=== PATIENT | female | born 1955 | race Caucasian/White ===

== ENCOUNTER 2016-10-01 13:56 | Inpatient (IN) | payer MEDICARE, MEDICAID ==
[~2016-10-01] VITALS: Ht 160 cm; Wt 72.6 kg
[~2016-10-01 13:56] MED LIST: AMLO2.5T45 PO; ASPI-1035 PO; ATOR20TA65 PO; ENAL20TA; GLIM4TAB2 PO; GLIP10TA72; LISI-186 PO; METF10002 PO; PANT40TA4 PO; SITA100T6 PO; TRAM50TA
[2016-10-01] MEDS ORDERED: SODIUM CHLORIDE 0.9% 500 ML IV ONE (14:44)
[2016-10-01 15:06] LABS: BASOPHILS % 0.2 % (0.0-2.0); HEMATOCRIT. 38.8 % (36.0-48.0); HEMOGLOBIN. 12.9 g/dL (12.0-16.0); LYMPHOCYTES % 23.1 % (20.0-50.0); MEAN CORPUSCULAR HEMOGLOBIN 28.7 pg (28.0-32.0); MEAN CORPUSCULAR HGB CONC 33.2 g/dL (31.0-37.0); MEAN CORPUSCULAR VOLUME 86.6 fL (81.0-99.0); MONOCYTES % 5.2 % (2.0-8.0); NEUTROPHILS % 70.5 % (40.0-76.0); PLATELET 251 x1000/uL (130-400); RED BLOOD CELL COUNT 4.48 mill/uL (4.2-5.4); RED CELL DISTRIBUTION WIDTH 14.3 % (11.6-14.6); WHITE BLOOD COUNT 6.1 x1000/uL (4.5-11.0)
[2016-10-01 15:11] LABS: PROTHROMBIN TIME 10.6 sec
[2016-10-01 15:13] LABS: CHLORIDE 104 mEq/L (98-107); INDEX HEMOLYSI 1 (1-3); INDEX ICTERIC 1 (1-4); INDEX LIPEMIC 1 (1-3)
[2016-10-01 15:19] LABS: ALANINE AMINOTRANSFERASE 22 IU/L (13-61); ALBUMIN 3.9 g/dL (3.4-5.0); ANION GAP 15; CALCIUM 9.2 mg/dL (8.5-10.1); CARBON DIOXIDE 25 mEq/L (21-32); LIPASE 333 IU/L (73-393); UREA NITROGEN BLOOD 10 mg/dL (7-21)
[2016-10-01 15:24] LABS: CREATINE KINASE 77 IU/L (26-192); CREATINE KINASE MB FRACTION 1.9 ng/mL (0.5-3.6); NT PRO B-TYPE NATRIURETIC PEP 120 pg/mL (5-125); TROPONIN I < 0.02 ng/mL (0.00-0.04); eGFR > 60 mL/min (>60)
[2016-10-01 20:00] VITALS: BP 141/77
[2016-10-01 22:15] VITALS: BP 141/77
[2016-10-02] VITALS: BP 118/82
[2016-10-02] MEDS ORDERED: CLONIDINE 0.1MG TABLET PO PRN (01:30)
[2016-10-02] MEDS ORDERED: ACETAMINOPHEN 325MG TABLET PO PRN (01:30)
[2016-10-02] MEDS ORDERED: DEXTROSE 50% WATER 50ML SYRINGE IV PRN (02:15)
[2016-10-02 04:00] VITALS: BP 105/60
[2016-10-02] MEDS: BLOOD SUGAR DIAGNOSTIC STRIP TEST SCH ×4 (06:20→21:20)
[2016-10-02 06:48] LABS: BASOPHILS % 0.4 % (0.0-2.0); EOSINOPHILS % 1.7 % (0.0-5.0); HEMOGLOBIN. 11.9 g/dL (12.0-16.0); LYMPHOCYTES % 31.6 % (20.0-50.0); MEAN CORPUSCULAR HEMOGLOBIN 28.7 pg (28.0-32.0); MEAN CORPUSCULAR HGB CONC 33.1 g/dL (31.0-37.0); MEAN CORPUSCULAR VOLUME 86.5 fL (81.0-99.0); MEAN PLATELET VOLUME 7.1 fl (7.4-10.4); MONOCYTES % 7.8 % (2.0-8.0); NEUTROPHILS % 58.5 % (40.0-76.0); PLATELET 230 x1000/uL (130-400); RED BLOOD CELL COUNT 4.16 mill/uL (4.2-5.4); WHITE BLOOD COUNT 5.1 x1000/uL (4.5-11.0)
[2016-10-02] MEDS: INSULIN LISPRO 100 UNITS/ML SUBCUT SCH ×4 (07:00→21:17)
[2016-10-02 07:01] LABS: ANION GAP 13; CARBON DIOXIDE 25 mEq/L (21-32); CHLORIDE 106 mEq/L (98-107); HDL CHOLESTEROL 43 mg/dL (40-59); INDEX HEMOLYSI 1 (1-3); INDEX ICTERIC 1 (1-4); INDEX LIPEMIC 1 (1-3); LDL CHOLESTEROL 111 mg/dL (5-100); TRIGLYCERIDE 134 mg/dL (0-150); UREA NITROGEN BLOOD 9 mg/dL (7-21); eGFR > 60 mL/min (>60)
[2016-10-02 08:00] VITALS: BP 130/76
[2016-10-02] MEDS: ENOXAPARIN 40MG/0.4ML SYR SUBCUT SCH (08:47)
[2016-10-02] MEDS ORDERED: ASPIRIN 81MG TABLET PO SCH (09:00)
[2016-10-02 12:00] VITALS: BP 115/75
[2016-10-02 16:00] VITALS: BP 133/82
[2016-10-02 20:00] VITALS: BP 154/85
[2016-10-02] MEDS ORDERED: ATORVASTATIN CALCIUM 20MG TABLET PO SCH ×2 (21:00)
[2016-10-02] MEDS: CLOPIDOGREL 75MG TABLET PO SCH (21:15)
[2016-10-03] VITALS: BP_SYST 112; BP_SYST 122; BP_SYST 125; BP_DIAS 71; BP_DIAS 85
[2016-10-03 04:00] VITALS: BP_SYST 116; BP_SYST 128; BP_SYST 130; BP_DIAS 68; BP_DIAS 77; BP_DIAS 78
[2016-10-03] MEDS: INSULIN LISPRO 100 UNITS/ML SUBCUT SCH ×3 (06:31→17:40)
[2016-10-03] MEDS: BLOOD SUGAR DIAGNOSTIC STRIP TEST SCH ×3 (06:31→17:10)
[2016-10-03 08:00] VITALS: BP_SYST 111; BP_SYST 124; BP_SYST 129; BP_DIAS 69; BP_DIAS 73
[2016-10-03] MEDS ORDERED: GLIPIZIDE 10MG TABLET PO SCH (09:00)
[2016-10-03] MEDS ORDERED: LINAGLIPTIN 5MG TABLET PO SCH (09:00)
[2016-10-03] MEDS ORDERED: GLIMEPIRIDE 4MG TABLET PO SCH (09:00)
[2016-10-03] MEDS: CLOPIDOGREL 75MG TABLET PO SCH (10:01)
[2016-10-03] MEDS: ENOXAPARIN 40MG/0.4ML SYR SUBCUT SCH (10:03)
[2016-10-03] MEDS: GLIMEPIRIDE 4MG TABLET PO SCH ×2 (10:08→17:40)
[2016-10-03 12:00] VITALS: BP 118/69
[2016-10-03 16:00] VITALS: BP 119/84
[2016-10-03 16:52] VITALS: BP 119/84
[2016-10-03] MEDS ORDERED: ATORVASTATIN CALCIUM 40MG TABLET PO SCH (21:00)
[2016-10-04] MEDS ORDERED: GLIPIZIDE 10MG TABLET PO SCH (07:10)
== END 2016-10-03 18:20 | disposition home or self-care (01) | DRG 65 ==
LOC: ER 15:52 → 8WST 22:22
PROVIDERS: ADMIT Internal Medicine; ATTEND Internal Medicine
DX: I63.9 Cerebral infarction, unspecified (principal); G81.94 Hemiplegia, unspecified affecting left nondominant side; E11.9 Type 2 diabetes mellitus without complications; E78.5 Hyperlipidemia, unspecified; I11.9 Hypertensive heart disease without heart failure; Z86.73 Personal history of transient ischemic attack (TIA), and cerebral infarction without residual deficits; Z96.649 Presence of unspecified artificial hip joint; Z87.442 Personal history of urinary calculi; Z90.49 Acquired absence of other specified parts of digestive tract; Z79.899 Other long term (current) drug therapy
CPT/HCPCS: 36415; 70450; 70551; 71010; 80048; 80053; 80061; 82550; 82553; 82962; 83036; 83690; 83880; 84443; 84484; 85025; 85610; 93005; 96360; 97162; 99285; J1650; J1815; J7030; J7040

== ENCOUNTER 2019-04-05 15:34 | Emergency (ER) | payer MEDICARE, OTHER, MEDICAID ==
[~2019-04-05] VITALS: Ht 154.9 cm; Wt 64.0 kg
[~2019-04-05 15:34] MED LIST changes: -ASPI-1035 PO; +ASPI-1393 PO; +GLIP10TA3; -GLIP10TA72; +METF-416 PO; -METF10002 PO; +SITA100T11 PO; -SITA100T6 PO
[2019-04-05 16:07] VITALS: BP 150/63
[2019-04-05 17:29] LABS: CLARITY URINE CLEAR (CLEAR); COLOR URINE YELLOW (YELLOW); KETONES URINE NEGATIVE (NEGATIVE); LEUKOCYTE ESTERASE URINE 2+ (NEGATIVE); NITRITE URINE NEGATIVE (NEGATIVE); OCCULT BLOOD URINE NEGATIVE (NEGATIVE); PH URINE 6.5 (4.5-8.0); PROTEIN URINE NEGATIVE (NEGATIVE); SPECIFIC GRAVITY URINE 1.013 (1.005-1.030); UROBILINOGEN URINE 0.2 E.U./dL (0.2-1.0)
== END 2019-04-05 18:19 | disposition home or self-care (01) ==
LOC: ER 16:15
DX: N39.0 Urinary tract infection, site not specified (principal); N81.4 Uterovaginal prolapse, unspecified; E11.9 Type 2 diabetes mellitus without complications; I10 Essential (primary) hypertension; Z86.73 Personal history of transient ischemic attack (TIA), and cerebral infarction without residual deficits; Z96.649 Presence of unspecified artificial hip joint; Z98.890 Other specified postprocedural states; Z90.49 Acquired absence of other specified parts of digestive tract; Z79.82 Long term (current) use of aspirin; Z88.6 Allergy status to analgesic agent
CPT/HCPCS: 81003; 99283

== ENCOUNTER 2019-06-07 16:25 | Emergency (ER) | payer MEDICARE, MEDICAID ==
[~2019-06-07] VITALS: Ht 160 cm; Wt 69.0 kg
[2019-06-07] MEDS ORDERED: KETOROLAC 60MG/2ML VIAL IM STA (18:14)
[2019-06-07 19:25] VITALS: BP 120/67
== END 2019-06-07 19:31 | disposition home or self-care (01) ==
LOC: ER 16:25
DX: H11.32 Conjunctival hemorrhage, left eye (principal); R51 Headache; E11.9 Type 2 diabetes mellitus without complications; I10 Essential (primary) hypertension; Z88.6 Allergy status to analgesic agent; Z88.5 Allergy status to narcotic agent
CPT/HCPCS: 99283